=== PATIENT | female | born 1985 | race African-American/Black ===

== ENCOUNTER 2021-11-25 18:22 | Emergency (ER) | payer MEDICAID ==
[2021-11-25 19:15] LABS: Bacteria/HPF 3+ HPF (None Seen); Bilirubin Negative (Negative); Blood, Urine Negative (Negative); Clarity Clear (Clear); Glucose, Urine (Dipstick) Normal (Negative); Ketone, Urine Negative (Negative); Leukocyte 75 Leu/uL (Negative); Nitrite Negative (Negative); Protein, Urine (Dipstick) 10 mg/dL (Neg-Trace); RBC/HPF 0-3 HPF (0-3); Specific Gravity, Urine 1.021 (1.002-1.036); Urobilinogen Normal mg/dL (Less than 2)
[2021-11-25 19:16] LABS: Pregnancy Test - Urine (BHCG) Negative (Negative); Pregu Control Background? CLEAR/WHITE (CLR/WHITE); Pregu Control Bar Appear? YES (CONTROL BAR); Specific Gravity 1.021 (1.002-1.036)
== END 2021-11-25 19:30 | disposition home or self-care (01) ==
LOC: ERS 18:22
DX: N30.01 Acute cystitis with hematuria (principal)
CPT/HCPCS: 81003; 81015; 81025; 99283

== ENCOUNTER 2022-05-23 09:10 | Emergency (ER) | payer OTHER ==
[2022-05-23 09:46] LABS: #Eosinphils 0.1 thou/uL (0.0-0.7); #Lymphocytes 2.1 thou/uL (1.20-3.40); #Monocytes 0.4 thou/uL (0.11-0.59); #Neutrophils 3.1 thou/uL (1.40-6.50); %Basophils 0.8 % (0.0-1.0); %Eosinophils 1.6 % (0.0-10.0); %Lymphocytes 36.7 % (21.0-51.0); %Monocytes 7.1 % (0.0-10.0); %Neutrophils 53.9 % (42.0-75.0); Hemoglobin 11.1 g/dL (12.0-16.0); Mean Corpuscular HGB CONC 31.6 g/dL (32.0-36.0); Mean Corpuscular Hemoglobin 26.5 pg (27.0-31.0); Mean Corpuscular Volume 83.9 fl (78.0-98.0); Platelet Count 415 10x3/uL (130-400); Red Blood Cell (RBC) Count 4.18 mill/uL (4.20-5.40); White Blood Cell (WBC) Count 5.7 10x3/uL (4.8-10.8)
[2022-05-23] MEDS ORDERED: Ketorolac Tromethamine 30 MG/ML VIAL ONE (10:05)
[2022-05-23 10:07] LABS: Bilirubin Negative (Negative); Blood, Urine Negative (Negative); Glucose, Urine (Dipstick) Normal (Negative); Ketone, Urine Negative (Negative); Leukocyte 500 Leu/uL (Negative); Nitrite Negative (Negative); Protein, Urine (Dipstick) 20 mg/dL (Neg-Trace); RBC/HPF 0-3 HPF (0-3); Specific Gravity, Urine 1.019 (1.002-1.036); Squamous Epithelial 0-3 HPF (0-3); Urobilinogen Normal mg/dL (Less than 2); WBC/HPF Greater than 50 HPF (0-3); pH, Urine 7.5 (5.0-9.0)
[2022-05-23 10:08] LABS: Bacteria/HPF 1+ HPF (None Seen); Clarity Cloudy (Clear); Pregnancy Test - Urine (BHCG) Negative (Negative); Pregu Control Background? CLEAR/WHITE (CLR/WHITE); Pregu Control Bar Appear? YES (CONTROL BAR); Specific Gravity 1.019 (1.002-1.036)
[2022-05-23 10:08] LABS: ALT (SGPT) 8 U/L (8-55); AST (SGOT) 11 U/L (5-34); Albumin 3.7 g/dL (3.5-5.0); Alkaline Phosphatase 59 U/L (40-110); Anion Gap 12 mmol/L (10-20); BUN (Urea Nitrogen) 7 mg/dL (7.0-18.7); Bilirubin, Total 0.4 mg/dL (0.2-1.2); Calc. Creatinine Clearance 0 mL/min (70-130); Calcium 8.9 mg/dL (7.8-10.44); Carbon Dioxide 20 mmol/L (22-29); Chloride 110 mmol/L (98-107); Estimated GFR 117; Globulin 3.2 g/dL (2.4-3.5); Glucose 93 mg/dL (70-105); Potassium 4.1 mmol/L (3.5-5.1); Protein, Total 6.9 g/dL (6.0-8.3); Sodium 138 mmol/L (136-145)
== END 2022-05-23 11:39 | disposition home or self-care (01) ==
LOC: ERS 09:10
DX: N30.01 Acute cystitis with hematuria (principal)
CPT/HCPCS: 36415; 74176; 80053; 81003; 81015; 81025; 83690; 85025; 87077; 87086; 87186; 96372; J1885

== ENCOUNTER 2022-07-07 16:29 | Emergency (ER) | payer OTHER ==
[2022-07-07] MEDS ORDERED: Acetaminophen 500 MG TAB ONE (17:30)
== END 2022-07-07 19:38 | disposition home or self-care (01) ==
LOC: ERS 16:29
DX: S66.303A Unspecified injury of extensor muscle, fascia and tendon of left middle finger at wrist and hand level, initial encounter (principal); S60.032A Contusion of left middle finger without damage to nail, initial encounter; W23.0XXA Caught, crushed, jammed, or pinched between moving objects, initial encounter

== ENCOUNTER 2023-02-26 08:11 | Observation (INO) | payer SELFPAY ==
[2023-02-26] MEDS ORDERED: Aspirin Chewable 81 MG TAB ONE (09:05)
[2023-02-26 09:25] LABS: #Basophils 0.1 thou/uL (0.0-0.2); #Eosinphils 0.2 thou/uL (0.0-0.7); #Monocytes 0.5 thou/uL (0.11-0.59); #Neutrophils 3.3 thou/uL (1.40-6.50); %Basophils 1.2 % (0.0-1.0); %Eosinophils 2.7 % (0.0-10.0); %Lymphocytes 32.8 % (21.0-51.0); %Monocytes 7.7 % (0.0-10.0); %Neutrophils 55.4 % (42.0-75.0); Hemoglobin 10.6 g/dL (12.0-16.0); Mean Corpuscular HGB CONC 30.3 g/dL (32.0-36.0); Mean Corpuscular Hemoglobin 23.7 pg (27.0-31.0); Mean Corpuscular Volume 78.1 fl (78.0-98.0); Mean Platelet Volume 10.1 fL (7.4-10.4); Platelet Count 439 10x3/uL (130-400); RBC Distribution Width 15.7 % (11.5-14.5); Red Blood Cell (RBC) Count 4.48 mill/uL (4.20-5.40); White Blood Cell (WBC) Count 5.9 10x3/uL (4.8-10.8)
[2023-02-26 09:55] LABS: ALT (SGPT) 10 U/L (8-55); AST (SGOT) 12 U/L (5-34); Alkaline Phosphatase 66 U/L (40-110); Anion Gap 11 mmol/L (10-20); BUN (Urea Nitrogen) 7 mg/dL (7.0-18.7); Bilirubin, Total 0.3 mg/dL (0.2-1.2); Calc. Creatinine Clearance 0 mL/min (70-130); Calcium 9.6 mg/dL (7.8-10.44); Carbon Dioxide 22 mmol/L (22-29); Chloride 107 mmol/L (98-107); Estimated GFR 113; Globulin 3.1 g/dL (2.4-3.5); Glucose 94 mg/dL (70-105); Lipase 26 U/L (8-78); Potassium 4.3 mmol/L (3.5-5.1); Protein, Total 7.1 g/dL (6.0-8.3); Sodium 136 mmol/L (136-145)
[2023-02-26 09:57] LABS: Troponin I Less than 0.010 ng/mL (< 0.028)
[2023-02-26] MEDS ORDERED: Boostrix 0.5 ML (Tdap) VIAL (>/=7 yrs of age) ONE (11:50)
[2023-02-26] MEDS ORDERED: Ondansetron ODT 4 MG TAB PO PRN ×2 (13:30→16:01)
[2023-02-26] MEDS ORDERED: Acetaminophen 325 MG TAB PO PRN (13:30)
[2023-02-26] MEDS ORDERED: Acetaminophen 650 MG Suppository PR PRN ×2 (13:30→16:01)
[2023-02-26] MEDS ORDERED: hydrALAZINE 20 MG/ML VIAL SLOW IVP PRN ×2 (13:30→16:01)
[2023-02-26] MEDS ORDERED: Ondansetron PF 4 MG/2 ML Vial IVP PRN ×2 (13:30→16:01)
[2023-02-26 14:52] VITALS: BMI 47.0
[2023-02-26] MEDS: Acetaminophen 325 MG TAB PO PRN (16:29)
[2023-02-26] MEDS ORDERED: Ketorolac Tromethamine 30 MG/ML VIAL IVP SCH (19:30)
[2023-02-26] MEDS ORDERED: Atorvastatin Calcium 40 MG TAB PO SCH ×2 (21:00)
[2023-02-27] MEDS ORDERED: Aspirin 81 mg Enteric Coated Tablet PO SCH ×2 (09:00)
[2023-02-27 09:40] LABS: #Basophils 0.1 thou/uL (0.0-0.2); #Eosinphils 0.1 thou/uL (0.0-0.7); #Monocytes 0.5 thou/uL (0.11-0.59); #Neutrophils 3.3 thou/uL (1.40-6.50); %Basophils 1.2 % (0.0-1.0); %Eosinophils 2.3 % (0.0-10.0); %Lymphocytes 29.1 % (21.0-51.0); %Monocytes 8.6 % (0.0-10.0); %Neutrophils 58.6 % (42.0-75.0); Hematocrit 35.7 % (36.0-47.0); Hemoglobin 10.8 g/dL (12.0-16.0); Mean Corpuscular HGB CONC 30.3 g/dL (32.0-36.0); Mean Corpuscular Hemoglobin 23.9 pg (27.0-31.0); Mean Platelet Volume 10.2 fL (7.4-10.4); Platelet Count 424 10x3/uL (130-400); RBC Distribution Width 15.8 % (11.5-14.5); Red Blood Cell (RBC) Count 4.52 mill/uL (4.20-5.40); White Blood Cell (WBC) Count 5.7 10x3/uL (4.8-10.8)
[2023-02-27] MEDS: Acetaminophen 325 MG TAB PO PRN (09:59)
[2023-02-27 10:07] LABS: Anion Gap 10 mmol/L (10-20); BUN (Urea Nitrogen) 11 mg/dL (7.0-18.7); Calc. Creatinine Clearance 184 mL/min (70-130); Calcium 9.6 mg/dL (7.8-10.44); Carbon Dioxide 23 mmol/L (22-29); Chloride 108 mmol/L (98-107); Estimated GFR 109; Glucose 90 mg/dL (70-105); Potassium 4.1 mmol/L (3.5-5.1); Sodium 137 mmol/L (136-145)
[2023-02-27 16:20] VITALS: BP 111/58; TEMP 98.1
[2023-02-27 17:55] LABS: Prothrombin Time 13.7 sec (12.0-14.7)
[2023-02-27 17:56] LABS: PTT 28.8 sec (22.9-36.1)
[2023-02-27 18:15] LABS: Free T4 (Free Thyroxine) 0.81 ng/dL (0.70-1.48); Thyroid Stimulating Hormone 1.5896 uIU/mL (0.35-4.94)
[2023-02-28] MEDS ORDERED: Clopidogrel Bisulfate 75 MG TAB PO SCH (09:00)
[2023-03-01 12:23] LABS: DRVVT Confirm 39.7
[2023-03-01 13:30] LABS: HEX PHOS LA Tube 1 42.2 SEC; HEX PHOS LA Tube 2 38.5 SEC; Hexagonal Phospholipid Neut 3.7 SEC (0-8.0)
[2023-03-01 13:42] LABS: DRVVT Confirm 39.7
[2023-03-02 12:35] LABS: Cardiolipin IgA Ab 3.4 APL-U/mL (<14 Negative); Cardiolipin IgG Ab 2.9 GPL-U/mL (<10 Negative); Cardiolipin IgM Ab 4.8 MPL-U/mL (<10 Negative); EliA APS New Method **** NEW METHOD ****; beta-2-Glycoprotein I IgA Ab 2.4 U/mL (<7 Negative); beta-2-Glycoprotein I IgM Abs 3.1 U/mL (<7 Negative)
== END 2023-02-27 18:45 | disposition home or self-care (01) ==
LOC: EEVIPCON 08:11 → ERS 08:11 → 2SE 12:19 → ERS 14:14
PROVIDERS: ADMIT Hospitalist; ATTEND Hospitalist
DX: R53.1 Weakness (principal); R29.810 Facial weakness; I08.1 Rheumatic disorders of both mitral and tricuspid valves; R51.9 Headache, unspecified; D64.9 Anemia, unspecified; E66.9 Obesity, unspecified; Z68.42 Body mass index [BMI] 45.0-49.9, adult; Z79.82 Long term (current) use of aspirin; Z79.899 Other long term (current) drug therapy
CPT/HCPCS: 36415; 70450; 70551; 71045; 72125; 80048; 80053; 81240; 81241; 83690; 83880; 84439; 84443; 84484; 85025; 85300; 85303; 85305; 85598; 85610; 85613; 85730; 86146; 86147; 90471; 90715; 93005; 93306; 93880; 96372; 96374; 96375; G0378; J1650; J1885